=== PATIENT | female | born 1975 | race Caucasian/White ===

== ENCOUNTER → 2024-03-26 06:19 | Day surgery (SDC) | payer BC, SELFPAY | LOC: GI 06:19 | PROVIDERS: ATTENDING PHYSICIAN Internal Medicine Gastroenterology | DX: K22.70 Barrett's esophagus without dysplasia (principal); Z53.8 Procedure and treatment not carried out for other reasons | CPT/HCPCS: 43235 ==

== ENCOUNTER 2024-09-17 06:18 | Day surgery (SDC) | payer BC, SELFPAY | END 2024-09-17 12:31 | disposition home or self-care (01) | LOC: GI 06:18 | PROVIDERS: ATTENDING PHYSICIAN Internal Medicine Gastroenterology | DX: K44.9 Diaphragmatic hernia without obstruction or gangrene (principal); K31.89 Other diseases of stomach and duodenum | CPT/HCPCS: 43239; 88305; 88342 ==